=== PATIENT | female | born 1980 | race Two or more races ===

== ENCOUNTER 2020-12-12 17:28 | Emergency (ER) | payer MEDICAID ==
[~2020-12-12] VITALS: Ht 170.2 cm; Wt 117.9 kg
[2020-12-12 17:40] VITALS: BP 136/96
[2020-12-12] MEDS ORDERED: cefTRIAXone SOD 1,000 MG VL IM ONE (21:45)
== END 2020-12-13 00:40 | disposition home or self-care (01) ==
LOC: ER 17:28
DX: L03.114 Cellulitis of left upper limb (principal); E66.9 Obesity, unspecified; Z68.41 Body mass index [BMI] 40.0-44.9, adult; Z90.49 Acquired absence of other specified parts of digestive tract; Z90.710 Acquired absence of both cervix and uterus; Z88.8 Allergy status to other drugs, medicaments and biological substances
CPT/HCPCS: 73200; 96372; 99284; J0696